=== PATIENT | female | born 1985 | race Caucasian/White ===

== ENCOUNTER 2017-04-14 20:30 | Emergency (ER) | payer SELFPAY ==
[~2017-04-14 20:30] MED LIST: SE-NTAB3 PO
--- NOTE | 2017-04-14 21:50 | PD ---
HPI Chief Complaint 38 weeks Pelvic cramps 1 day Date Seen: Apr 14, 2017 Time Seen: 21:20 Travel History International Travel<30 Days: No Contact w/Intl Traveler<30Days: No Known Affected Area: No History of Present Illness HPI Pt is a 31 yo at 38 weeks. EDC 04/28/2017. care with Eilna Tobar. Pt has 2 previous C sections and is scheduled for repeat C section 04/21/[address] vines, here. Pt reports pelvic cramp that lasted about 30 minutes prior to presentation here. She thinks she felt 'a pop, as if baby was ready to come out' She denies any vaginal bleeding or leaking. Active movements Weeks Gestation: 38 Para: 2 : 3 History Past Medical History Narrative Medical Scoliosis; h/o Hypothyroidism in 2nd . Euthyroid this . Obstetric History Obstetric History 2 previous C sections. First was done , per patient, o/a her scoliosis Past Surgical History Narrative Surgical C sections x2 Family History Family History: Negative Social History Alcohol Use: No Tobacco Use: No Substance Abuse: No Allergies-Medications (Allergen,Severity, Reaction): Coded Allergies: amoxicillin (Verified Allergy, Mild, Rash, 04/12/17) Home Meds Active Scripts Vit W/ Docusate-Fe Fu (Se-Mic 19 29-1 mg) 29 Mg Iron-1 Mg-25 Mg Tab, 1 TAB PO DAILY for Nutritional Supplement for 60 Days, #60 TAB 2 Refills Prov:Tonio Edwards MD 12/28/16 Review of Systems Except as stated in HPI: all other systems reviewed are Neg Physical Exam Narrative GENERAL: Well-nourished, well-developed patient. SKIN: Warm and dry. HEAD: Normocephalic and atraumatic. EYES: No scleral icterus. No injection or drainage. ENT: No nasal drainage noted. Mucous membranes pink. Airway patent. NECK: Supple, trachea midline. No JVD. CARDIOVASCULAR: Regular rate and rhythm without murmurs, gallops, or rubs. RESPIRATORY: Breath sounds equal bilaterally. No accessory muscle use. BREASTS: Bilateral exam showed no masses , no retractions, no nipple discharge. ABDOMEN/GI: Abdomen soft, non-tender, bowel sounds present, no rebound, no guarding Gravid to [38] weeks size Fundal Height: [38] GENITOURINARY: External Genitalia: intact and normal in appearance BUS glands: [wnl-] Cervix: [soft] Dilatation: [closed] Effacement: [50%] Station: [-2] Presentation: [vertex] Membranes: [intact] Uterine Contractions: [none] FHT's: Category: [1] Baseline: [140s] Reactive: [-] Variability: [excellent] Decels: [none] EXTREMITIES: No cyanosis or edema. BACK: Nontender without obvious deformity. No CVA tenderness. NEUROLOGICAL: Awake and alert. Motor and sensory grossly within normal limits. Five out of 5 muscle strength in all muscle groups. Normal speech. Data Data Vital Signs Reviewed: Yes [facility] Medical Record Reviewed: Yes Plan 31 yo at 38 weeks. Scheduled repeat C Section for 04/21/2017. Presented with pelvic cramping. Cervix closed, no contractions on TOCO or palpable. Pt has no labs, so we will draw unknown labs today. Discharge home with labor precautions. Diagnosis Diagnosis: Primary Impression: with 38 completed weeks gestation Additional Impressions: Previous section Pelvic cramping in antepartum period Disposition: DISCHARGE HOME Condition: Good Ze Teran MD Apr 14, 2017 21:50
[2017-04-14 23:11] LABS: AUTOMATED NEUTROPHIL # 8.9 TH/MM3 (1.8-7.7); BASOPHIL % 0.2 % (0.0-2.0); EOSINOPHIL # 0.1 TH/MM3 (0-0.4); HEMATOCRIT 30.1 % (35.0-46.0); HEMOGLOBIN 10.1 GM/DL (11.6-15.3); LYMPH % 18.3 % (9.0-44.0); LYMPHOCYTE # 2.2 TH/MM3 (1.0-4.8); MEAN CELL VOLUME 86.7 FL (80.0-100.0); MEAN CORPUSCULAR HEMOGLOBIN 29.1 PG (27.0-34.0); MEAN CORPUSCULAR HGB CONC 33.6 % (32.0-36.0); MEAN PLATELET VOLUME 10.1 FL (7.0-11.0); MONO % 6.1 % (0.0-8.0); MONOCYTE # 0.7 TH/MM3 (0-0.9); NEUT % 74.4 % (16.0-70.0); PLATELET COUNT 169 TH/MM3 (150-450); RED BLOOD COUNT 3.47 MIL/MM3 (4.00-5.30); RED CELL DISTRIBUTION WIDTH 13.5 % (11.6-17.2); WHITE BLOOD COUNT 11.9 TH/MM3 (4.0-11.0)
[2017-04-16 11:56] LABS: HEPATITIS A AB IGM NEGATIVE (NEGATIVE); HEPATITIS B CORE AB IGM NEGATIVE (NEGATIVE); HEPATITIS B SURFACE ANTIGEN NEGATIVE (NEGATIVE); HEPATITIS C AB IgG NEGATIVE (NEGATIVE)
== END 2017-04-14 22:40 | disposition home or self-care (01) ==
LOC: HOBED 20:30
DX: O26.893 Other specified pregnancy related conditions, third trimester (principal); R10.2 Pelvic and perineal pain; O34.219 Maternal care for unspecified type scar from previous cesarean delivery; Z3A.38 38 weeks gestation of pregnancy
CPT/HCPCS: 36415; 80074; 85025; 86592; 86762; 86850; 86900; 86901; 87081; 99283

== ENCOUNTER 2017-04-21 | Inpatient (IN) | payer SELFPAY ==
[~2017-04-21] VITALS: Ht 162.6 cm; Wt 102.0 kg
[2017-04-21] VITALS (23 sets, daily range): BP systolic 99–128; BP diastolic 51–81; PULSE 53–87; RESP 16–20; TEMP 97.2–98.7; O2SAT 98–99
[2017-04-21] MEDS ORDERED: LACTATED RINGER'S 1000 ML INJ 1,000 ML IV ONE (08:30)
[2017-04-21] MEDS ORDERED: LACTATED RINGER'S 1000 ML INJ 1,000 ML IV SCH (09:00)
[2017-04-21 09:07] LABS: AUTOMATED NEUTROPHIL # 8.7 TH/MM3 (1.8-7.7); BASOPHIL % 0.3 % (0.0-2.0); EOSINOPHIL # 0.1 TH/MM3 (0-0.4); EOSINOPHIL % 0.6 % (0.0-4.0); HEMATOCRIT 31.1 % (35.0-46.0); HEMO FLAGS DIFF FINAL; LYMPH % 18.5 % (9.0-44.0); LYMPHOCYTE # 2.2 TH/MM3 (1.0-4.8); MEAN CELL VOLUME 86.1 FL (80.0-100.0); MEAN CORPUSCULAR HEMOGLOBIN 29.1 PG (27.0-34.0); MEAN CORPUSCULAR HGB CONC 33.7 % (32.0-36.0); MONO % 6.2 % (0.0-8.0); NEUT % 74.4 % (16.0-70.0); PLATELET COUNT 171 TH/MM3 (150-450); RED BLOOD COUNT 3.61 MIL/MM3 (4.00-5.30); RED CELL DISTRIBUTION WIDTH 13.5 % (11.6-17.2); WHITE BLOOD COUNT 11.6 TH/MM3 (4.0-11.0)
[2017-04-21 09:11] LABS: BLOOD, URINE NEG (NEG); COMMENT (UR) CULTURE INDICATED; CULTURE IF INDICATED CULTURE INDICATED; GLUCOSE,URINE NEG (NEG); HYALINE CAST, URINE 1 /lpf (RARE); KETONE, URINE NEG (NEG); MUCUS URINE FEW /lpf (OCC); NITRITE,URINE NEG (NEG); SQUAMOUS EPITHELIAL CELL URINE 17 /hpf (0-5); URINE COLOR YELLOW (YELLW/STRAW)
[2017-04-21 09:12] LABS: BACTERIA, URINE MOD /hpf
[2017-04-21] MEDS ORDERED: ceFAZolin 2 GM PREMIX 50 ML IV SCH (09:15)
[2017-04-21] MEDS ORDERED: CITRIC ACID-SODIUM CITRATE LIQ 30 ML UDC PO SCH (09:45)
[2017-04-21] MEDS ORDERED: ACETAMINOPHEN 1000 MG/100 ML 100 ML IV ONE (11:09)
[2017-04-21] MEDS ORDERED: METOCLOPRAMIDE HCL 10 MG/2 ML VIAL ONE (11:09)
[2017-04-21] MEDS ORDERED: MORPHINE SULFATE PF 5 MG/10 ML VIAL ONE (11:12)
--- NOTE | 2017-04-21 12:43 | HHI.HP ---
History & Physical H&P Patient Name: Krystin Spring Unit Number: [id number] Date of : 1985 Patient Status: Registered Clinic Attending Doctor: History & Physical History & Physical H&P PREOP HPI: Pt is a 31y/o @ 39wks by LMP c/w 3rd TM , EDWARDO 04/28/17. She presents today for BTL. No LOF, VB, ctx. +FM. She has PNC at [facility]. is complicated by: -- h/o CSx2 -- late PNC (found out she was in December) -- uninsured (no labs performed this preg) -- hypothyroidism (off meds per MD) -- scoliosis -- asthma -- desires permanent sterilization OBHx: CS x2 PMH: scoliosis, hypothyroidism, asthma PSH: CSx2 FH: none SH: no T/E/Ds Meds: PNVs Aller: PCN (pt reports anaphylactic reaction as a child) PE: General: well developed, well nourished, no acute distress HEENT: normocephalic atraumatic, extraocular movements intact, neck supple Extremities: full range of motion Skin: normal coloration, no rashes, no suspicious skin lesions noted Neurologic: cranial nerves 2-12 grossly intact, normal muscle tone, normal gait Psychiatric: normal mood and affect, appropriate A/P: 31y/o @ 39 wks with h/o CSx2, desires repeat with BTL R/B/A of were discussed with the patient. Specifically we reviewed risks of bleeding, infection, pain, injury to baby or internal organs/nerves/ vessels/structures. We reviewed the rare but possible need for emergency hysterectomy if uncontrolled bleeding occurs. She was also counseled on the rare but possible need for a blood transfusion and the associated risks of allergic reaction, HIV (1:1M), and hepatitis (4:1M). Pt desires permanent sterilization. Pt was counseled on R/B/A of BTL including but not limited to bleeding, infection, damage to surrounding structures including bowel/bladder. Pt was counseled on the risk of regret up to 30% and risk of failure approximately 3-5:1000. Pt understands high risk of ectopic in setting of failure, with need to contact provider immediately with positive UPT. She understands the permanent and irreversible nature of the procedure and the alternatives including OCPs, patch, NuvaRing, injections, IUD , Nexplanon, partner vasectomy. She is aware that if possible, complete ( rather than partial) salpingectomies will be performed to decrease future risk of ovarian cancer. She stated her understanding and elects to proceed with permanent sterilization. Scheduled for 04/20 arrival at 21:30pm and to be done at (39.0wks) Preet Sorto MD Apr 21, 2017 08:43 Macario Oviedo II, MD Apr 21, 2017 12:43
[2017-04-21] MEDS ORDERED: SODIUM CHLORIDE 0.9% FLUSH 10 ML FLUSH IV FLUSH PRN (12:45)
[2017-04-21] MEDS ORDERED: OXYTOCIN 30 UNITS-500ML PREMIX 500 ML IV ONE (12:45)
[2017-04-21] MEDS ORDERED: ACETAMINOPHEN 325 MG TAB PO PRN (12:45)
[2017-04-21] MEDS ORDERED: oxyCODONE/ACETAMINOPHEN 5 MG/325 MG TAB PO PRN ×2 (12:45)
[2017-04-21] MEDS ORDERED: OXYTOCIN 30 UNITS-500ML PREMIX 500 ML ONE (12:52)
[2017-04-21] MEDS ORDERED: ONDANSETRON HCL 4 MG/2 ML VIAL IV PUSH PRN (13:00)
[2017-04-21] MEDS ORDERED: DOCUSATE SODIUM 50 MG/SENNA 8.6 MG TAB PO PRN (13:00)
[2017-04-21] MEDS ORDERED: SIMETHICONE 80 MG CHEWABLE TAB PO PRN (13:00)
[2017-04-21] MEDS ORDERED: EPIDURAL-NALOXONE HCL 0.4 MG/ML AMP IV PUSH PRN (13:45)
[2017-04-21] MEDS ORDERED: EPIDURAL-DO NOT ADMINISTER ANTICOAGULANTS PRN (13:45)
[2017-04-21] MEDS ORDERED: EPIDURAL-DIPHENHYDRAMINE HCL 50 MG CAP PO PRN (13:45)
[2017-04-21] MEDS ORDERED: EPIDURAL-DIPHENHYDRAMINE HCL 50 MG/ML VIAL IV PUSH PRN (13:45)
[2017-04-21] MEDS ORDERED: EPIDURAL-NO SYSTEMIC NARCOTICS PRN (13:45)
[2017-04-21] MEDS: LACTATED RINGER'S 1000 ML INJ 1,000 ML IV SCH (17:22)
[2017-04-21] MEDS ORDERED: SODIUM CHLORIDE 0.9% FLUSH 10 ML FLUSH IV FLUSH SCH (21:00)
[2017-04-21] MEDS ORDERED: ZOLPIDEM TARTRATE 5 MG TAB PO PRN (21:00)
[2017-04-21] MEDS: IBUPROFEN 600 MG TAB PO PRN (21:23)
[2017-04-21] MEDS ORDERED: OXYTOCIN 30 UNITS-500ML PREMIX 500 ML IV PRN (22:45)
[2017-04-22] VITALS: BP 97/51; PULSE 61; RESP 16; TEMP 98.2
[2017-04-22] MEDS: LACTATED RINGER'S 1000 ML INJ 1,000 ML IV SCH (02:38)
[2017-04-22 04:00] VITALS: BP 106/58; PULSE 59; RESP 18; TEMP 97.7
[2017-04-22] MEDS: IBUPROFEN 600 MG TAB PO PRN ×2 (07:01→13:14)
--- NOTE | 2017-04-22 07:26 | HHI.OB ---
Subjective Post Operative Day: 1 Remarks Postoperative day #1. AFVSS overnight. She just began feeling pain after the anesthesia or. Incision clean, dry, and intact, not draining. Lochia like a period. Denies dysuria. No breast tenderness. She is feeding the baby via bottle Appetite good. No nausea or vomiting. Negative flatus. Negative bowel movement. Ambulating well. Denies fever, chills, cough, shortness of breath, chest pain, and calf pain. Otherwise, she is doing well this morning and has no other complaints. Objective Vitals/I&O Vital Signs Date Time Temp Pulse Resp B/P (MAP) Pulse Ox O2 Delivery O2 Flow Rate FiO2 04/22/17 04:00 59 106/58 (74) 04/22/17 04:00 97.7 18 04/22/17 00:00 98.2 61 16 97/51 (66) 04/21/17 21:00 97.9 72 16 119/65 (83) 98 04/21/17 14:25 97.2 04/21/17 14:25 53 16 99/54 (69) 04/21/17 13:37 104/51 (68) 04/21/17 13:37 73 04/21/17 13:36 16 99 04/21/17 13:24 54 18 98 04/21/17 13:24 114/56 (75) 04/21/17 13:08 59 18 119/59 (79) 98 04/21/17 12:55 63 119/57 (77) 04/21/17 12:55 20 98 04/21/17 12:40 65 18 114/58 (76) 98 04/21/17 12:40 97.8 04/21/17 09:35 80 04/21/17 09:30 75 04/21/17 09:25 71 04/21/17 09:20 74 04/21/17 09:15 74 04/21/17 09:10 76 04/21/17 09:05 82 04/21/17 09:00 85 04/21/17 08:55 81 04/21/17 08:50 82 04/21/17 08:45 81 04/21/17 08:40 81 04/21/17 08:35 87 04/21/17 08:34 85 128/81 (97) 04/21/17 08:33 98.7 18 Result Diagram: 04/21/17 0845 Objective Remarks GENERAL: Well-nourished, well-developed patient. CARDIOVASCULAR: Regular rate and rhythm without murmurs, gallops, or rubs. RESPIRATORY: Breath sounds equal bilaterally. No accessory muscle use. ABDOMEN/GI: Abdomen soft, non-tender, bowel sounds present. Incision: Clean, dry and intact. Fundus: Firm, non-tender at umbilicus. GENITOURINARY: Light to moderate bleeding. EXTREMITIES: No cyanosis or edema, non-tender, without signs of DVT. Medications and IVs Current Medications Medications (Trade) Dose Ordered Sig/Puma Route Start Time Stop Time Status Last Admin Lactated Ringer's 1,000 ml @ 100 mls/hr Q10H IV 04/21/17 17:37 04/22/17 13:36 04/22/17 02:38 Oxytocin 500 ml @ 100 mls/hr UNSCH X1 PRN IV 04/21/17 22:45 04/22/17 22:44 (NS Flush) 2 ml BID IV FLUSH 04/21/17 21:00 (NS Flush) 2 ml UNSCH PRN IV FLUSH 04/21/17 12:45 (Mylicon Chew) 80 mg QID PRN PO 04/21/17 13:00 (Tylenol) 650 mg Q6H PRN PO 04/21/17 12:45 (Motrin) 600 mg Q6H PRN PO 04/21/17 12:45 04/22/17 07:01 (Percocet 5-325 Mg) 1 tab Q4H PRN PO 04/21/17 12:45 (Percocet 5-325 Mg) 2 tab Q4H PRN PO 04/21/17 12:45 (Angelica-Colace) 2 tab Q12H PRN PO 04/21/17 13:00 (Ambien) 5 mg HS PRN PO 04/21/17 21:00 (M-M-R Ii Inj) 0.5 ml ONCE ONCE SQ 04/22/17 16:00 04/22/17 16:01 (Boostrix Inj) 0.5 ml ONCE ONCE IM 04/22/17 16:00 04/22/17 16:01 04/21/17 21:24 (Zofran Inj) 4 mg Q6H PRN IV PUSH 04/21/17 13:00 Miscellaneous Information NO SYSTEMIC NARCOTICS TO BE GIVEN FO... UNSCH PRN .XX 04/21/17 13:45 04/22/17 13:44 (Narcan Inj) 0.4 mg UNSCH PRN IV PUSH 04/21/17 13:45 04/22/17 13:44 (Benadryl Inj) 25 mg Q6H PRN IV PUSH 04/21/17 13:45 04/22/17 13:44 (Benadryl) 50 mg Q6H PRN PO 04/21/17 13:45 04/22/17 13:44 Miscellaneous Information ALL NURSING DEPARTMENTS UNSCH PRN .XX 04/21/17 13:45 04/22/17 13:44 Assessment/Plan Assessment and Plan 31 y/o female who is POD# 1 s/p repeat -Continue routine care -Percocet and Motrin PRN pain -Pericolase PRN for constipation -Encouraged OOB. Advised pelvic rest for 6 wks -Will need a follow-up appointment within 1 week for incision check -Re: ctrl -H&H had a bilateral tubal ligation Discussed with Dr. Oviedo Discharge Planning Plan to discharge home in 1-2 days Tamie Mir MD R2 Apr 22, 2017 07:26
[2017-04-22 07:30] LABS: AUTOMATED NEUTROPHIL # 11.5 TH/MM3 (1.8-7.7); BASOPHIL # 0.1 TH/MM3 (0-0.2); BASOPHIL % 0.4 % (0.0-2.0); EOSINOPHIL # 0.1 TH/MM3 (0-0.4); EOSINOPHIL % 0.4 % (0.0-4.0); HEMATOCRIT 28.2 % (35.0-46.0); HEMO FLAGS DIFF FINAL; LYMPH % 14.8 % (9.0-44.0); LYMPHOCYTE # 2.2 TH/MM3 (1.0-4.8); MEAN CELL VOLUME 86.2 FL (80.0-100.0); MEAN CORPUSCULAR HEMOGLOBIN 29.9 PG (27.0-34.0); MEAN CORPUSCULAR HGB CONC 34.6 % (32.0-36.0); MONO % 6.1 % (0.0-8.0); NEUT % 78.3 % (16.0-70.0); PLATELET COUNT 158 TH/MM3 (150-450); RED BLOOD COUNT 3.27 MIL/MM3 (4.00-5.30); RED CELL DISTRIBUTION WIDTH 13.7 % (11.6-17.2); WHITE BLOOD COUNT 14.7 TH/MM3 (4.0-11.0)
[2017-04-22 07:50] VITALS: BP 91/63; PULSE 65; RESP 18; TEMP 97.7
[2017-04-22] MEDS ORDERED: IBUP-232 PO (09:21)
[2017-04-22] MEDS ORDERED: OXYC1TAB63 PO (09:21)
--- NOTE | 2017-04-22 09:22 | HHI.DCPOC ---
Discharge Care Plan Diagnosis: (1) delivery delivered Report Symptoms to Your Doctor -Temperature above 100.5 degrees -Redness, of incision or excessive or foul smelling drainage -Unusual pain or calf pain -Increased vaginal bleeding -Painful or difficulty urinating -Feelings of extreme sadness or anxiety after 2 weeks Goals to Promote Your Health * To prevent worsening of your condition and complications * To maintain your health at the optimal level Directions to Meet Your Goals Take your medications as prescribed Follow your dietary instruction Follow activity as directed Ensure plenty of rest for recovery Drink fluids for hydration Keep your appointments as scheduled Take your immunizations and boosters as scheduled If your symptoms worsen call your PCP, if no PCP go to Urgent Care Center or Emergency Room Smoking is Dangerous to Your Health. Avoid second hand smoke Call the 24-hour crisis hotline for domestic abuse at Tamie Mir MD R2 Apr 22, 2017 09:22
[2017-04-22] MEDS ORDERED: DIPHTH/TETANUS/ACEL PERTUSSIS (BOOSTER) 0.5 ML VIAL/PFS IM ONE (16:00)
[2017-04-22] MEDS ORDERED: MEASLES, MUMPS, RUBELLA VACCINE 0.5 ML VIAL SQ ONE (16:00)
--- NOTE | 2017-04-22 20:58 | MP ---
cc: ALLAN OVIEDO MD DATE OF SURGERY: 04/21/2017. PREOPERATIVE DIAGNOSIS: Previous section and desires sterilization at term. POSTOPERATIVE DIAGNOSIS: Previous section and desires sterilization at term. PROCEDURE: Repeat low transverse section, bilateral tubal ligation. SURGEON: Allan Oviedo MD. [employer]AND SAL[employer] AGENT: Drake. ANESTHESIA: Spinal. PREOPERATIVE NOTE: The patient is a 31-year-old white female G3, P2 with previous x2, now for repeat and tubal ligation. She understands the risks and benefits of tubal and that this is considered permanent yet less than 100% effective with a 1 in 300 failure rate. DESCRIPTION OF THE PROCEDURE IN DETAIL: The patient was taken to the operating room and placed in supine position on the operating room table. After adequate spinal anesthesia, she was prepped and draped for abdominal surgery. the previous Pfannenstiel incision was excised out and cast off. The incision was carried to the fascia sharply. The fascia was dissected laterally off the rectus. The peritoneal cavity was entered sharply. In the midline, the incision extended superiorly and inferiorly. The lower edge of the incision was placed on a bladder blade and visceral peritoneum reflected off the lower uterine segment and placed on bladder blade. The transverse hysterotomy was made and extended bluntly bilaterally and a female infant was delivered at 11:48 a.m. weight 3050 grams, Apgars of 8 and 9. There were no complications. Cord blood obtained, delayed cord clamping done prior. Placenta then manually extracted and held remnants of membranes removed from the uterus. The uterus was exteriorized and the hysterotomy closed in a running layer of chromic followed by imbricating suture of same. Hemostasis achieved with several stick ties on the superior edge of the incision. The tubal ligation was then performed. The left tube was grasped and elevated with Condon clamp. A hemostat passed was passed through the mesosalpinx and two catgut sutures pulled through the window made in the mesosalpinx and the tube was tied fore and aft. The intervening one inch segment of tube was removed and sent to pathology. The same was done on the opposite side without difficulty. The uterus was then elevated and blood suctioned from the cul-de-sac and gutters and the uterus was replaced in the peritoneal cavity. All hemostatic edges noted. The parietal peritoneum was closed in a running layer of 2-0 Vicryl. The muscle was then reapproximated with stick ties of chromic. The fascia was closed in running layer of #0 Vicryl. Subcutaneous tissue was reapproximated with 3-0 running catgut suture. Skin closed with subcutaneous 3-0 Monocryl subcuticular stitch. The dressing was the 7-day silver bandage placed on the incision and will be left for a week. The estimated blood loss was 500 cc. There were no complications. Sponge, needle and instrument counts were correct x2. The patient went to recovery in stable condition. MD DEVENDRA Jones/REGGIE /12:33 PM /8:34 PM
== END 2017-04-22 18:06 | disposition home or self-care (01) | DRG 766 ==
LOC: H2EB 08:08 → H1EA 13:55
PROVIDERS: ADMIT Obstetrics & Gynecology Maternal & Fetal Medicine; ATTEND Obstetrics & Gynecology Maternal & Fetal Medicine
PROC: 10D00Z1 Extraction of Products of Conception, Low, Open Approach (ICD-10-PCS; principal; 2017-04-21)
PROC: 0UB70ZZ Excision of Bilateral Fallopian Tubes, Open Approach (ICD-10-PCS; 2017-04-21)
DX: O34.211 Maternal care for low transverse scar from previous cesarean delivery (principal); M41.9 Scoliosis, unspecified; Z37.0 Single live birth; E03.9 Hypothyroidism, unspecified; O99.284 Endocrine, nutritional and metabolic diseases complicating childbirth; Z30.2 Encounter for sterilization; Z3A.39 39 weeks gestation of pregnancy; O99.52 Diseases of the respiratory system complicating childbirth; J45.909 Unspecified asthma, uncomplicated
CPT/HCPCS: 59025; 80307; 81001; 85025; 86703; 86850; 86900; 86901; 87086; 88302; 88305; 90715; J0131; J0690; J2274; J2590; J2765; J7120

== ENCOUNTER 2017-09-17 19:54 | Emergency (ER) | payer SELFPAY ==
[~2017-09-17] VITALS: Ht 162.6 cm; Wt 100.8 kg
[2017-09-17 20:15] VITALS: BP 142/91; PULSE 85; RESP 18; TEMP 98.1; O2SAT 98
[2017-09-17] MEDS ORDERED: SODIUM CHLOR 0.9% 1000 ML INJ 1,000 ML IV ONE (20:41)
[2017-09-17] MEDS ORDERED: ONDANSETRON ODT 4 MG TAB PO ONE (20:45)
[2017-09-17] MEDS ORDERED: SODIUM CHLORIDE 0.9% FLUSH 10 ML FLUSH IVF PRN (20:45)
--- NOTE | 2017-09-17 20:46 | PD ---
HPI Chief Complaint: Dizziness Time Seen by Provider: 20:28 Travel History International Travel<30 days: No Contact w/Intl Traveler<30days: No Traveled to known affect area: No History of Present Illness HPI The patient is a 31-year-old female who presents emergency department for near syncope and dizziness. The patient was sitting on her floor, folding laundry, when she suddenly became flushed, lightheaded, felt like she was going to pass out. The patient denies any loss of consciousness. She did have mild nausea without any vomiting. The lightheadedness and dizziness has resolved, however, she still has mild nausea. She did have a history of similar symptoms while undergoing anesthesia for section. She denies any history of arrhythmia or cardiac disorders. She does note several weeks of intermittent chest pain which is substernal, sharp to pressure, intermittent, and last 2 minutes. She denies any history of coronary artery disease, hypertension, hyperlipidemia, diabetes, or tobacco use. The patient does have a history of previous section and tubal ligation. She denies . She denied any shortness of breath with her symptoms today. [facility]LY [facility] Past Medical History Narrative Medical Hypothyroidism ?: Not LMP: 09/12/17 Past Surgical History Narrative Surgical , tubal ligation Social History Alcohol Use: No Tobacco Use: No Allergies-Medications (Allergen,Severity, Reaction): Coded Allergies: amoxicillin (Verified Allergy, Mild, Rash, 09/17/17) Reported Meds & Prescriptions Reported Meds & Active Scripts Active Se-Mic 19 29-1 mg ( Vit W/ Docusate-Fe Fu) 29 Mg Iron-1 Mg-25 Mg Tab 1 Tab PO DAILY 60 Days Review of Systems Except as stated in HPI: all other systems reviewed are Neg General / Constitutional: No: Fever Eyes: No: Blurred Vision HENT: Positive: Lightheadedness, No: Headaches Cardiovascular: Positive: Chest Pain or Discomfort, No: Palpitations, Irregular Rhythm, Tachycardia, Diaphoresis Respiratory: No: Shortness of Breath Gastrointestinal: Positive: Nausea, No: Vomiting, Abdominal Pain Genitourinary: No: Dysuria Musculoskeletal: Positive: Weakness Neurologic: Positive: Dizziness Physical Exam Narrative GENERAL: Awake, alert, pleasant 31-year-old female who appears her stated age and is in no acute respiratory distress. SKIN: Focused skin assessment warm/dry. HEAD: Atraumatic. Normocephalic. EYES: Pupils equal and round. No scleral icterus. No injection or drainage. ENT: No nasal bleeding or discharge. Mucous membranes pink and moist. NECK: Trachea midline. No JVD. CARDIOVASCULAR: Regular rate and rhythm. No murmur appreciated. Heart rate in the 80s. RESPIRATORY: No accessory muscle use. Clear to auscultation. Breath sounds equal bilaterally. GASTROINTESTINAL: Abdomen soft, non-tender, nondistended. MUSCULOSKELETAL: No obvious deformities. No clubbing. No cyanosis. No edema. NEUROLOGICAL: Awake and alert. No obvious cranial nerve deficits. Motor grossly within normal limits. Normal speech. Nonfocal. Oriented 4. Follows commands without difficulty. PSYCHIATRIC: Appropriate mood and affect; insight and judgment normal. Data Data Last Documented VS Vital Signs Date Time Temp Pulse Resp B/P (MAP) Pulse Ox O2 Delivery O2 Flow Rate FiO2 09/17/17 21:35 63 16 110/71 (84) 65 16 113/72 (86) 64 16 115/86 (96) 09/17/17 21:05 98 09/17/17 20:15 98.1 Orders Orders Electrocardiogram (09/17/17 20:41) Ed Urine Pregnancytest Poc (09/17/17 20:41) Complete Blood Count With Diff (09/17/17 20:41) Comprehensive Metabolic Panel (09/17/17 20:41) Magnesium (Mg) (09/17/17 20:41) Ckmb (Isoenzyme) Profile (09/17/17 20:41) Troponin I (09/17/17 20:41) Ecg Monitoring (09/17/17 20:41) Iv Access Insert/Monitor (09/17/17 20:41) Oximetry (09/17/17 20:41) Sodium Chloride 0.9% Flush (Ns Flush) (09/17/17 20:45) Sodium Chlor 0.9% 1000 Ml Inj (Ns 1000 M (09/17/17 20:41) Orthostatic Vital Signs (09/17/17 20:41) Ondansetron Odt (Zofran Odt) (09/17/17 20:45) Labs Laboratory Tests Test 09/17/17 21:17 White Blood Count 9.2 TH/MM3 Red Blood Count 4.46 MIL/MM3 Hemoglobin 12.3 GM/DL Hematocrit 36.9 % Mean Corpuscular Volume 82.8 FL Mean Corpuscular Hemoglobin 27.7 PG Mean Corpuscular Hemoglobin Concent 33.5 % Red Cell Distribution Width 14.0 % Platelet Count 211 TH/MM3 Mean Platelet Volume 10.1 FL Neutrophils (%) (Auto) 69.7 % Lymphocytes (%) (Auto) 21.0 % Monocytes (%) (Auto) 6.7 % Eosinophils (%) (Auto) 2.3 % Basophils (%) (Auto) 0.3 % Neutrophils # (Auto) 6.5 TH/MM3 Lymphocytes # (Auto) 1.9 TH/MM3 Monocytes # (Auto) 0.6 TH/MM3 Eosinophils # (Auto) 0.2 TH/MM3 Basophils # (Auto) 0.0 TH/MM3 CBC Comment DIFF FINAL Differential Comment Blood Urea Nitrogen 14 MG/DL Creatinine 1.10 MG/DL Random Glucose 97 MG/DL Total Protein 7.5 GM/DL Albumin 3.8 GM/DL Calcium Level 8.9 MG/DL Magnesium Level 2.3 MG/DL Alkaline Phosphatase 95 U/L Aspartate Amino Transf (AST/SGOT) 16 U/L Alanine Aminotransferase (ALT/SGPT) 23 U/L Total Bilirubin 0.2 MG/DL Sodium Level 139 MEQ/L Potassium Level 3.9 MEQ/L Chloride Level 105 MEQ/L Carbon Dioxide Level 30.5 MEQ/L Anion Gap 4 MEQ/L Estimat Glomerular Filtration Rate 59 ML/MIN Total Creatine Kinase 86 U/L Troponin I LESS THAN 0.02 NG/ML MDM Medical Decision Making Medical Screen Exam Complete: Yes Emergency Medical Condition: Yes Medical Record Reviewed: Yes Interpretation(s) EKG reveals normal sinus rhythm with a rate of 66. No ischemic changes or ectopy noted. No evidence of WPW or Brugada syndrome. Laboratory Tests Test 09/17/17 21:17 White Blood Count 9.2 TH/MM3 Red Blood Count 4.46 MIL/MM3 Hemoglobin 12.3 GM/DL Hematocrit 36.9 % Mean Corpuscular Volume 82.8 FL Mean Corpuscular Hemoglobin 27.7 PG Mean Corpuscular Hemoglobin Concent 33.5 % Red Cell Distribution Width 14.0 % Platelet Count 211 TH/MM3 Mean Platelet Volume 10.1 FL Neutrophils (%) (Auto) 69.7 % Lymphocytes (%) (Auto) 21.0 % Monocytes (%) (Auto) 6.7 % Eosinophils (%) (Auto) 2.3 % Basophils (%) (Auto) 0.3 % Neutrophils # (Auto) 6.5 TH/MM3 Lymphocytes # (Auto) 1.9 TH/MM3 Monocytes # (Auto) 0.6 TH/MM3 Eosinophils # (Auto) 0.2 TH/MM3 Basophils # (Auto) 0.0 TH/MM3 CBC Comment DIFF FINAL Differential Comment Blood Urea Nitrogen 14 MG/DL Creatinine 1.10 MG/DL Random Glucose 97 MG/DL Total Protein 7.5 GM/DL Albumin 3.8 GM/DL Calcium Level 8.9 MG/DL Magnesium Level 2.3 MG/DL Alkaline Phosphatase 95 U/L Aspartate Amino Transf (AST/SGOT) 16 U/L Alanine Aminotransferase (ALT/SGPT) 23 U/L Total Bilirubin 0.2 MG/DL Sodium Level 139 MEQ/L Potassium Level 3.9 MEQ/L Chloride Level 105 MEQ/L Carbon Dioxide Level 30.5 MEQ/L Anion Gap 4 MEQ/L Estimat Glomerular Filtration Rate 59 ML/MIN Total Creatine Kinase 86 U/L Troponin I LESS THAN 0.02 NG/ML Differential Diagnosis Differential diagnosis includes vasovagal syncope, neurocardiogenic syncope, dehydration, arrhythmia, electrolyte abnormality, STEMI, ectopic . Narrative Course IV was established, labs are drawn and sent, and the patient was placed on cardiac telemetry monitoring and continuous pulse oximetry monitoring. EKG was ordered and interpreted. Orthostatic vital signs were obtained. The patient was administered Zofran 4 mg ODT and 1 L of IV fluids. Orthostatic vital signs are unremarkable. Bedside UA test is negative. Patient's CBC is unremarkable, no evidence of anemia. Troponin is negative. Electrolytes are unremarkable. The patient had a near syncopal episode, may have been vasovagal. She is stable for outpatient follow-up with a primary physician. Diagnosis Primary Impression: Near syncope Patient Instructions: General Instructions Additional Instructions: Please provide the patient a copy of her EKG and lab results at discharge. Follow-up with a primary physician. Plenty of fluids to stay hydrated. Return if symptoms worsen or progress. Med/Other Pt SpecificInfo: No Change to Meds Disposition: 01 DISCHARGE HOME Condition: Stable Niko Weir MD September 17, 2017 20:46
[2017-09-17 21:05] VITALS: O2SAT 98
[2017-09-17 21:28] LABS: AUTOMATED NEUTROPHIL # 6.5 TH/MM3 (1.8-7.7); BASOPHIL % 0.3 % (0.0-2.0); EOSINOPHIL # 0.2 TH/MM3 (0-0.4); EOSINOPHIL % 2.3 % (0.0-4.0); HEMATOCRIT 36.9 % (35.0-46.0); HEMOGLOBIN 12.3 GM/DL (11.6-15.3); LYMPHOCYTE # 1.9 TH/MM3 (1.0-4.8); MEAN CELL VOLUME 82.8 FL (80.0-100.0); MEAN CORPUSCULAR HEMOGLOBIN 27.7 PG (27.0-34.0); MEAN CORPUSCULAR HGB CONC 33.5 % (32.0-36.0); MEAN PLATELET VOLUME 10.1 FL (7.0-11.0); MONO % 6.7 % (0.0-8.0); MONOCYTE # 0.6 TH/MM3 (0-0.9); NEUT % 69.7 % (16.0-70.0); PLATELET COUNT 211 TH/MM3 (150-450); RED BLOOD COUNT 4.46 MIL/MM3 (4.00-5.30); WHITE BLOOD COUNT 9.2 TH/MM3 (4.0-11.0)
[2017-09-17 21:31] LABS: CHLORIDE 105 MEQ/L (98-107); SODIUM (NA) 139 MEQ/L (136-145)
[2017-09-17 21:34] LABS: CALCIUM 8.9 MG/DL (8.5-10.1)
[2017-09-17 21:35] VITALS: BP_SYST 110; BP_SYST 113; BP_SYST 115; BP_DIAS 71; BP_DIAS 72; BP_DIAS 86; RESP 16
[2017-09-17 21:35] LABS: ALBUMIN 3.8 GM/DL (3.4-5.0); BICARBONATE 30.5 MEQ/L (21.0-32.0); BLOOD UREA NITROGEN 14 MG/DL (7-18); GLUCOSE,RANDOM 97 MG/DL (74-106); MAGNESIUM 2.3 MG/DL (1.5-2.5)
[2017-09-17 21:38] LABS: ALT (GPT) 23 U/L (10-53); AST (GOT) 16 U/L (15-37); GLOMERULAR FILTRATION RATE 59 ML/MIN (>89)
[2017-09-17 21:40] LABS: TOTAL BILIRUBIN ADULT 0.2 MG/DL (0.2-1.0); TOTAL PROTEIN 7.5 GM/DL (6.4-8.2)
[2017-09-17 21:41] LABS: ALKALINE PHOSPHATASE 95 U/L (45-117)
[2017-09-17 21:43] LABS: TROPONIN I LESS THAN 0.02 NG/ML (0.02-0.05)
[2017-09-17 22:28] VITALS: BP 116/52; TEMP 98.3
--- NOTE | 2017-09-18 15:55 | EKG ---
Date Performed: 09/17/2017 Time Performed: 20:51:15 PTAGE: 31 years EKG: Sinus rhythm NORMAL ECG NO PREVIOUS TRACING DOCTOR: Braydon Curran Interpretating Date/Time 09/18/2017 15:54:08
== END 2017-09-17 22:29 | disposition home or self-care (01) ==
LOC: PHED 19:54
DX: R55 Syncope and collapse (principal); R11.0 Nausea; E03.9 Hypothyroidism, unspecified; Z88.0 Allergy status to penicillin
CPT/HCPCS: 80053; 82550; 83735; 84484; 84703; 85025; 93005; 96360; 99284; J7030